=== PATIENT | male | born 1960 | race Caucasian/White ===

== ENCOUNTER 2017-01-10 11:31 | Emergency (ER) | payer BC ==
[2017-01-10] MEDS ORDERED: IPRATROPIUM/ALBUTEROL 0.5/3 MG 3 ML AMPUL.NEB INHALATION ONE (11:57)
[2017-01-10] MEDS ORDERED: METHYLPREDNISOLONE SOD 125 MG/2 ML VIAL ONE (11:57)
[2017-01-10] MEDS ORDERED: NORMAL SALINE 100 ML IV ONE (11:58)
[2017-01-10] MEDS ORDERED: MAGNESIUM SULFATE 1 GM/2 ML VIAL ONE (11:58)
[2017-01-10 12:13] LABS: BASOPHIL# 0.2 X 10^3uL (0.0-0.1); BASOPHILS 1.7 % (0.0-2.0); EOSINOPHILS# 0.6 X 10^3uL (0.0-0.4); HEMATOCRIT 45.6 % (42.0-54.0); HEMOGLOBIN 15.9 g/dL (14.0-18.0); LYMPHOCYTES# 1.4 X 10^3uL (0.8-3.8); MEAN CELL VOLUME 89.6 fL (80.0-100.0); MEAN CORPUS. HGB CONCENTRATION 34.8 g/dL (32.0-36.0); MEAN CORPUSCULAR HEMOGLOBIN 31.2 pg (29.0-35.0); MEAN PLATELET VOLUME 8.1 fL (7.4-10.4); MONOCYTES# 0.7 X 10^3uL (0.2-1.0); NEUTROPHILS 69.3 % (54.0-75.0); NEUTROPHILS# 6.4 X 10^3uL (2.6-6.7); PLATELET COUNT 245 X 10^3uL (130-440); RED BLOOD COUNT 5.09 X 10^6uL (4.20-6.10); RED CELL DISTRIBUTION WIDTH 11.8 % (11.5-14.5); WHITE BLOOD COUNT 9.3 X 10^3uL (3.9-10.7)
[2017-01-10 12:29] LABS: ALKALINE PHOSPHATASE 46 U/L (38-126); ALT 58 U/L (21-72); AST 35 U/L (17-59); BILIRUBIN, DIRECT 0.5 mg/dL (0.0-0.4); BILIRUBIN, TOTAL 1.5 mg/dL (0.2-1.3); BLOOD UREA NITROGEN 12 mg/dL (9-20); CALCIUM 10.3 mg/dL (8.4-10.2); CHLORIDE 100 mmol/L (98-107); EST GLOMERULAR FILTRATION RATE > 60 mL/min; GLUCOSE 132 mg/dL (70-100); POTASSIUM 4.3 mmol/L (3.5-5.1); SODIUM 140 mmol/L (137-145); TOTAL PROTEIN 7.9 g/dL (6.3-8.2)
[2017-01-10 12:43] LABS: TROPONIN I < 0.012 ng/mL (0.00-0.034)
[2017-01-10 12:51] LABS: ALBUMIN 4.5 g/dL (3.5-5.0)
--- NOTE | 2017-01-10 13:07 | RADIOLOGY REPORT ---
HISTORY: Short of breath COMPARISON: None. FINDINGS: 1 view of the chest obtained. Heart size is normal. Mediastinal contours are normal. The lungs are we ll aerated. Slight interstitial prominence without definite edema or effusions noted. No infiltrates. No definite airways thickening. IMPRESSION: Slight interstitial prominence without definite changes of edema. Some of this is likely chronic. No effusion or infiltrate. Final Electronic Signature: This report was electronically signed by Norris Wong MD on 01/10/2017 1: 04 PM. ruben /
--- NOTE | 2017-01-10 13:32 | ER NURSING DOCUMENTATION ---
Nurse's Notes [facility] Name:Adam Barragan Age:56 yrs Sex:Male :1960 Arrival Date:01/10/2017 Time:11:31 Bed4 Private MD: Diagnosis:Bronchitis Asthmatic Presentation: 01/10 11:38 Acuity: ROB 3 lc 12:07 Presenting complaint: Patient states: from [place], has felt cold coming for last sj several days with productive cough, nasal congestion, now very dyspneic and unrelieved by son's albuterol inhaler. Transition of care: patient was not received from another setting of care. 12:07 Method Of Arrival: Private Vehicle sj Triage Assessment: 12:10 General: Appears distressed, ill, Behavior is cooperative, pleasant. Pain: Denies pain. sj Neuro: No deficits noted. Level of Consciousness is awake, alert, Oriented to person, place, time, event. Cardiovascular: Capillary refill < 3 seconds Heart tones S1 S2 present. Respiratory: Airway is patent Respiratory effort is even, labored, Respiratory pattern is regular, symmetrical, Breath sounds with wheezes bilaterally. in left posterior upper lobe, right posterior upper lobe, left posterior lower lobe, right posterior middle lobe and right posterior lower lobe. Historical: - Allergies: PENICILLINS; - PMHx: asthma as a child; pneumonia 2 years ago; - PSHx: KNEE SURGERY; Tonsillectomy; - Tetanus: < 10 years. - Ebola Screening: : Patient negative for fever greater than or equal to 101.5 degrees Fahrenheit, and additional compatible Ebola Virus Disease symptoms. Patient denies exposure to infectious person. Patient denies travel to an Ebola-affected area in the 21 days before illness onset. No symptoms or risks identified at this time. . - Immunization history: Unable to Obtain Flu Vaccine < 1 year Pneumococcal vaccine is not up to date, Patient has never been vaccinated Flu Vaccine None. - Social history: Smoking status: Patient states was never smoker of tobacco. Patient uses alcohol Patient/guardian denies using marijuana. Screenin:15 Infectious Disease Risk None. Abuse screen: Denies threats or abuse. Denies injuries sj from another. Nutritional screening: No deficits noted. Assessment: 12:14 Reassessment: No changes from previously documented assessment. continues with sj expiratory wheezes throughout after medications given, though dyspnea decreased and respirations now unlabored.. Vital Signs: 11:38 BP 160 / 77; Pulse 85; Resp 22; Temp 98.1(O); Pulse Ox 95% on 2 lpm NC; Weight 136.08 arc kg (R); Height 6 ft. 4 in. (193.04 cm) (R); Pain 0/10; 12:13 BP 148 / 74; Pulse 98; Resp 18; Pulse Ox 87% on R/A; Pain 0/10; sj 13:10 BP 146 / 81; Pulse 75; Resp 18; Pulse Ox 92% on 2 lpm NC; sj 13:26 BP 143 / 70; Pulse 72; Resp 17; Pulse Ox 92% on R/A; Pain 0/10; sj 11:38 Body Mass Index 36.52 (136.08 kg, 193.04 cm) arc ED Course: 11:32 Patient arrived in ED. arc 11:38 Triage completed. lc 11:40 Gael Hannah MD is Attending Physician. be 11:48 EKG done. (by ED staff). Reviewed by Gael Hannah MD. arc 12:04 Fanny Cope is Primary Nurse. sj 12:14 Notified ED Physician of patient's arrival and chief complaint. Dr. Hannah. sj 12:15 Valuables Given to family. Patient has correct armband on for positive identification. sj Placed in gown. Bed in low position. Call light in reach. Side rails up X 1. 12:16 Inserted peripheral IV: 20 gauge in left antecubital area and blood collected. sj 12:22 Port Xray Completed. pm1 12:30 Oxygen Oxygen administration via nasal cannula @ 2L/min. sj 13:27 court recording monitor on. Pulse ox on. NIBP on. sj Administered Medications: 11:45 Drug: DuoNeb (Albuterol 2.5 mg, Atrovent 0.5 mg); 3 ml; Route: Nebulizer; sj 13:29 Follow up: Response: Wheezing diminished sj 11:50 Drug: DuoNeb (Albuterol 2.5 mg, Atrovent 0.5 mg); 3 ml; Route: Nebulizer; sj 13:29 Follow up: Response: Wheezing diminished sj 11:50 Drug: Solu-MEDROL 125 mg; Route: IVP; Site: left antecubital; sj 13:28 Follow up: Response: Wheezing diminished sj 11:55 Drug: Magnesium Sulfate 2 grams; Route: IVPB; Infused Over: 30 mins; Site: left sj antecubital; 13:11 Follow up: IV Status: Completed infusion; IV Intake: 100ml sj Intake: 13:11 IV: 100ml; Total: 100ml. sj Outcome: 12:56 Discharge ordered by . be 13:27 Discharged to home ambulatory, with family. 13:27 Condition: improved 13:27 Instructed on discharge instructions, follow up and referral plans. medication usage, Demonstrated understanding of instructions, medications, Prescriptions given X 3. 13:31 Patient left the ED. 01/11 09:25 Discharge F/U Call: Spoke with: patient. Have you filled your prescriptions? yes. Signatures: Jane Rondon RN RN Gael Gomez MD MD be McBride, Philisha pm1 Jazlyn Rangel Reg Reg arc Hofsess, Rachel Fanny Cope
--- NOTE | 2017-01-10 13:32 | ER PHYSICIAN DOCUMENTATION ---
Physician Documentation [facility] Name:Adam Barragan Age:56 yrs Sex:Male :1960 Arrival Date:01/10/2017 Time:11:31 Bed4 Private MD: Gael Juares Disposition: 01/10 11:53 Critical Care: not applicable. be Disposition: 01/10/17 12:56 Discharged to Home/Self Care. Impression: Bronchitis Asthmatic. - Condition is Good. - Discharge Instructions: ASTHMATIC BRONCHITIS Adult - BRONCHITIS w/ Wheezing (Adult). - Prescriptions for albuterol sulfate 90 mcg/actuation Inhalation HFA aerosol inhaler - inhale 1 puff by INHALATION route every 4-6 hours; 1 Cartridge. Prednisone 20 mg Oral Tablet - take 3 tablet by ORAL route once daily for 5 days; 15 tablet. Doxycycline Hyclate 100 mg Oral - take 1 tablet by ORAL route 2 times per day; 14 tablet. - Medical Reconciliation form form. - Follow up: Private Physician; When: As needed; Reason: Recheck today's complaints. - Problem is new. - Symptoms have improved. HPI: 11:49 This 56 yrs old Male presents to ER with complaints of Chest Congestion. be 11:49 The patient has shortness of breath at rest, and the patient has a history of asthma, be as child; just arrived from [place] mid week and increasingly more difficulty breathing. Historical: - Allergies: PENICILLINS; - PMHx: asthma as a child; pneumonia 2 years ago; - PSHx: KNEE SURGERY; Tonsillectomy; - Tetanus: < 10 years. - Ebola Screening: : Patient negative for fever greater than or equal to 101.5 degrees Fahrenheit, and additional compatible Ebola Virus Disease symptoms. Patient denies exposure to infectious person. Patient denies travel to an Ebola-affected area in the 21 days before illness onset. No symptoms or risks identified at this time. . - Immunization history: Unable to Obtain Flu Vaccine < 1 year Pneumococcal vaccine is not up to date, Patient has never been vaccinated Flu Vaccine None. - Social history: Smoking status: Patient states was never smoker of tobacco. Patient uses alcohol Patient/guardian denies using marijuana. ROS: 11:50 Respiratory: Positive for cough, with green sputum, shortness of breath, wheezing. be 11:50 All other systems are negative. Exam: 11:51 Constitutional: This is a well developed, well nourished patient who is awake, alert, be and in no acute distress. Head/Face: Normocephalic, atraumatic. Eyes: Pupils equal round and reactive to light, extra-ocular motions intact. Lids and lashes normal. Conjunctiva and sclera are non-icteric and not injected. Cornea within normal limits. Periorbital areas with no swelling, redness, or edema. ENT: Nares patent. No nasal discharge, no septal abnormalities noted. Tympanic membranes are normal and external auditory canals are clear. Oropharynx with no redness, swelling, or masses, exudates, or evidence of obstruction, uvula midline. Mucous membranes moist. Neck: Trachea midline, no thyromegaly or masses palpated, and no cervical lymphadenopathy. Supple, full range of motion without nuchal rigidity, or vertebral point tenderness. No Meningismus. 11:51 Abdomen/GI: Soft, non-tender, with normal bowel sounds. No distension or tympany. No be guarding or rebound. No evidence of tenderness throughout. 11:51 Cardiovascular: Rate: normal, Rhythm: regular. 11:51 Respiratory: Respirations: no acute changes, is not noted, Breath sounds: wheezing, that is moderate. Vital Signs: 11:38 BP 160 / 77; Pulse 85; Resp 22; Temp 98.1(O); Pulse Ox 95% on 2 lpm NC; Weight 136.08 arc kg (R); Height 6 ft. 4 in. (193.04 cm) (R); Pain 0/10; 12:13 BP 148 / 74; Pulse 98; Resp 18; Pulse Ox 87% on R/A; Pain 0/10; sj 13:10 BP 146 / 81; Pulse 75; Resp 18; Pulse Ox 92% on 2 lpm NC; sj 13:26 BP 143 / 70; Pulse 72; Resp 17; Pulse Ox 92% on R/A; Pain 0/10; sj 11:38 Body Mass Index 36.52 (136.08 kg, 193.04 cm) arc MDM: 11:40 Patient medically screened. be 11:52 Differential diagnosis: Anemia Bronchitis Chronic Obstructive Pulmonary Disease. be Antibiotic administration: The patient is discharged and will get outpatient antibiotics, Doxycycline. Data reviewed: vital signs, nurses notes, lab test result(s), EKG, radiologic studies. Data interpreted: Pulse oximetry: is 95 %. 11:53 ECG:. be 13:28 Data reviewed: and as a result, I will discharge patient, give DuoNeb x2, SoluMedrol, be Magnesium w/ improvement; instruct in MDI/Aerochamber and dismiss w/ albuterol MDI, prednisone and doxycycline. Recommended Netipot sinus irrigation. 01/10 12:44 Order name: BASIC METABOLIC PANEL; Complete Time: 13:01 EDMS 01/10 12:59 Interpretation: Normal Except: mild hyperglycemia. be 01/10 12:44 Order name: MAGNESIUM; Complete Time: 13:01 EDMS 01/10 13:00 Interpretation: Normal. be 01/10 12:44 Order name: HEPATIC PANEL; Complete Time: 13:01 EDMS 01/10 13:00 Interpretation: Normal Except: probable Gilbert's syndrome. be 01/10 12:44 Order name: BNP,NT-PRO; Complete Time: 13:01 EDMS 01/10 13:01 Interpretation: Normal. be 01/10 12:44 Order name: TROPONIN I; Complete Time: 13:01 EDMS 01/10 13:01 Interpretation: Normal. be 01/10 12:45 Order name: LACTATE; Complete Time: 13:01 EDMS 01/10 13:01 Interpretation: Normal. be 01/10 12:50 Order name: CBC AUTO DIF, MDIF/RMOR IF IND; Complete Time: 13:01 EDMS 01/10 13:01 Interpretation: Normal. be 01/10 16:03 Order name: SPUTUM CULTURE AND GRAM STAIN EDMS 01/10 13:08 Order name: CHEST; SINGLE VIEW 23232; Complete Time: 13:38 EDMS 01/10 13:38 Interpretation: Normal. be 01/10 11:46 Order name: 12-lead EKG; Complete Time: 12:36 be 01/10 11:46 Order name: Iv Saline Lock; Complete Time: 12:36 be 01/10 11:46 Order name: Place Patient On Monitor; Complete Time: 12:36 be 01/10 11:46 Order name: Pulse Ox Continuous; Complete Time: 12:36 be 01/10 13:02 Order name: Aerochamber - Spacer; Complete Time: 13:30 be EC:53 Rate is 79 beats/min. Rhythm is regular, Normal Sinus Rhythm with No ectopy. QRS [place] be is Normal. MT interval is normal. QRS interval is normal. QT interval is normal. No Q waves. T waves are Normal. No ST changes noted. Clinical impression: Normal ECG. Interpreted by me. Dispensed Medications: 11:45 Drug: DuoNeb (Albuterol 2.5 mg, Atrovent 0.5 mg); 3 ml; Route: Nebulizer; sj 13:29 Follow up: Response: Wheezing diminished sj 11:50 Drug: DuoNeb (Albuterol 2.5 mg, Atrovent 0.5 mg); 3 ml; Route: Nebulizer; sj 13:29 Follow up: Response: Wheezing diminished sj 11:50 Drug: Solu-MEDROL 125 mg; Route: IVP; Site: left antecubital; sj 13:28 Follow up: Response: Wheezing diminished sj 11:55 Drug: Magnesium Sulfate 2 grams; Route: IVPB; Infused Over: 30 mins; Site: left sj antecubital; 13:11 Follow up: IV Status: Completed infusion; IV Intake: 100ml Signatures: Gael Hannah MD MD be Janzen, Sarah
== END 2017-01-10 13:32 | disposition home or self-care (01) ==
LOC: ER 11:31
DX: J45.998 Other asthma (principal); R73.9 Hyperglycemia, unspecified
CPT/HCPCS: 71010; 80048; 80076; 83605; 83735; 83880; 84484; 85025; 87070; 87205; 93005; 94640; 96365; 96375; 99285; J2930; J3475; J7620